=== PATIENT | male | born 1985 | race Caucasian/White ===

== ENCOUNTER 2023-12-08 17:40 | Emergency (ER) | payer SELFPAY ==
[2023-12-08 17:45] VITALS: BP 136/89; PULSE 83; TEMP 36.9; O2SAT 100; BMI 25.3
--- NOTE | 2023-12-08 17:56 | ECG_ITS ---
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
[2023-12-08 18:26] LABS: Basophils Percent Auto 0.6 % (0.2-2.0); Eosinophils Absolute Auto 0.4 10^3/uL (0.0-0.7); Eosinophils Percent Auto 5.2 % (0.9-7.0); Hematocrit 42.7 % (42.0-54.0); Hemoglobin 14.1 g/dL (14.0-18.0); Immature Granulocytes Abs Auto 0.02 10^3/uL (0.00-0.03); Immature Granulocytes Pct Auto 0.3 % (0.0-0.5); Lymphocytes Absolute Auto 2.2 10^3/uL (1.2-3.8); Mean Corpuscular Hemoglobin 34.1 pg (25.9-34.0); Mean Corpuscular Volume 103.1 fL (80.0-94.0); Mean Platelet Volume 9.6 fL (9.5-13.5); Monocytes Absolute Auto 0.6 10^3/uL (0.3-0.8); Monocytes Percent Auto 8.5 % (1.7-12.0); Neutrophils Absolute Auto 3.8 10^3/uL (1.4-6.5); Neutrophils Percent Auto 54.4 % (43.0-75.0); Platelet Count 206 10^3/uL (150-450); Red Blood Count 4.14 10^6/uL (4.70-6.10); Red Cell Distribution Width 11.8 % (11.0-15.0); White Blood Count 6.9 10^3/uL (4.0-11.0)
[2023-12-08 18:47] LABS: Amphetamine Screen Urine POSITIVE (NEGATIVE); Benzodiazepines Screen Urine NEGATIVE (NEGATIVE); Cannabinoid Screen Urine POSITIVE (NEGATIVE); Cocaine Screen Urine POSITIVE (NEGATIVE); Methadone Screen Urine NEGATIVE (NEGATIVE); Methamphetamines Screen Urine POSITIVE (NEGATIVE); Opiate Screen Urine NEGATIVE (NEGATIVE); Phencyclidine Screen Urine NEGATIVE (NEGATIVE); Tricyclic Antidepressant Urine NEGATIVE (NEGATIVE)
[2023-12-08 18:48] LABS: Barbiturates Screen Urine NEGATIVE (NEGATIVE); Buprenorphine Screen Urine NEGATIVE (NEGATIVE); Oxycodone Screen Urine NEGATIVE (NEGATIVE)
[2023-12-08 18:53] LABS: Alanine Aminotransferase 16 U/L (16-63); Albumin Globulin Ratio 1.2; Albumin Level 3.3 g/dL (3.4-5.0); Alkaline Phosphatase 96 U/L (46-116); Anion Gap 11.9; Aspartate Amino Transferase 10 U/L (15-37); Bilirubin Total 0.2 mg/dL (0.2-1.0); Calcium 8.4 mg/dL (8.5-10.1); Carbon Dioxide 27.9 mmol/L (21.0-32.0); Chloride 103 mmol/L (98-107); Estimated GFR (African America >60 (>=60); Estimated GFR (Non-African Ame >60 (>=60); Ethanol <3 mg/dL; Globulin 2.8 g/dL; Glucose 101 mg/dL (74-106); Potassium 3.8 mmol/L (3.5-5.1); Sodium 139 mmol/L (136-145); Total Protein 6.1 g/dL (6.4-8.2)
--- NOTE | 2023-12-08 19:39 | ED.PSYCH1 ---
HPI - Psych General Chief Complaint: Psychiatric Symptoms Stated Complaint: Suicide Time Seen by Provider: 12/08/23 17:47 Source: Reports patient and family (mother) Mode of arrival: walk-in Limitations: Reports no limitations History of Present Illness HPI Narrative: 38-year-old male presents to the emergency department with mother with complaint of racing thoughts, difficulty concentrating. Has had thoughts of harming himself. Patient states he recently stopped taking Vyvanse due to the cost so he has reverted to using some meth to calm his thoughts down. However, he has not used in a couple days and symptoms are worsening. Quality:?As above Severity:?Moderate Timing:?As above, constant, worsening Context: Normal setting and activity? Modifying factors:?As above Associated symptoms: As above If self harm: has plan Details of plan: states he would hit his head, but adds that he won't do it because it will hurt Related Data Allergies Allergy/AdvReac Type Severity Reaction Status Date / Time Penicillins Allergy Severe Unknown Verified 12/08/23 17:50 shellfish derived Allergy Severe Wheezing Verified 12/08/23 17:50 Review of Systems ROS Constitutional Denies: fever, chills, fatigue or change in sleep pattern Ears, nose, mouth, and throat Denies: nasal congestion Cardiovascular Denies: chest pain or shortness of breath with exertion Respiratory Denies: shortness of breath Gastrointestinal Denies: abdominal pain Musculoskeletal Denies: joint pain Psychiatric Reports: irritability and difficulty concentrating; Denies: anxiety, change in sleep pattern, hopelessness, paranoia, visual hallucinations, auditory hallucinations or homicidal ideation Endocrine Denies: fatigue Exam Constitutional Vital Signs, click to edit/add: Last Vital Signs Temp 98.4 F 12/08/23 17:45 Pulse 83 12/08/23 17:45 Resp 18 12/08/23 17:45 BP 136/89 12/08/23 17:45 Pulse Ox 100 12/08/23 17:45 O2 Del Method Room Air 12/08/23 17:45 Documenting provider has reviewed patient's vital signs: yes Common normals: no apparent distress, average body habitus, oriented x3, no limitations, alert and well nourished General appearance: cooperative, comfortable and well kempt Orientation/consciousness: Yes awake, Yes oriented to person, Yes oriented to place and Yes oriented to time HENMT Common normals: normocephalic and head/scalp atraumatic Head and scalp: normocephalic and atraumatic Eye Common normals: conjunctivae normal Conjunctiva: conjunctiva(e) normal Respiratory Common normals: normal respiratory effort and clear to auscultation bilaterally Effort & inspection: able to speak in complete sentences Auscultation: clear to auscultation bilaterally Cardio Common normals: regular rate, regular rhythm and no murmurs Rate: regular rate Rhythm: regular rhythm Neuro Common normals: oriented x3, no focal motor deficits and no sensory deficits noted Sensorium/orientation: awake, alert, oriented to person, oriented to place and oriented to time Gait (neuro): normal gait Psych Common normals: thought process normal, cooperative, affect normal, speech normal, activity/motor behavior normal, denies hallucinations, denies homicidal ideation and denies suicidal ideation Appearance: well kempt Attitude: engaged Activity/motor behavior: appropriate eye contact; no fidgeting, not hyperactive and not disorganized Speech: normal speech Mood and affect: anxious; not hostile affect Thought process: normal thought process Thought content: no suicidality Course Vital Signs Vital signs: Vital Signs Temperature 98.4 F 12/08/23 17:45 Pulse Rate 83 12/08/23 17:45 Respiratory Rate 18 12/08/23 17:45 Blood Pressure 136/89 12/08/23 17:45 Pulse Oximetry 100 12/08/23 17:45 Oxygen Delivery Method Room Air 12/08/23 17:45 Temperature 98.4 F 12/08/23 17:45 Pulse Rate 83 12/08/23 17:45 Respiratory Rate 18 12/08/23 17:45 Blood Pressure 136/89 12/08/23 17:45 Pulse Oximetry 100 12/08/23 17:45 Oxygen Delivery Method Room Air 12/08/23 17:45 MDM - Psych MDM Narrative Medical decision making narrative: This is a pleasant 38-year-old male who presented to the emergency department with mother due to concerns regarding his mental health. Patient states he has had difficulty concentrating, racing thoughts especially over the past couple days. Patient had been on Vyvanse, but due to cost, could not keep taking the prescription. Because of the thoughts started worsening, started using methamphetamine as this has helped in the past. However, he has not taken it in the past 3 days hence the worsening of his condition. He has had thoughts of harming himself, specifically, hitting his head into a wall, but admits he would not do this because he knows it will hurt. Denies any hallucinations, homicidal ideation, previous suicide attempts. On arrival, afebrile, vital signs are stable. On exam, nontoxic, well-appearing patient in no distress. He makes good eye contact. Heart regular rate and rhythm. Lung sounds clear and equal bilaterally. He is somewhat anxious, but cooperative no suicidal homicidal ideation. No evidence of delusional state or hallucinations present. EKG reveals no acute or concerning changes No serial no leukocytosis, anemia, electrolyte imbalance, renal impairment. Liver functions unremarkable. Alcohol not detected. Talk screen was positive for methamphetamines, cocaine, marijuana. Patient medically cleared He was evaluated by [facility]. After evaluation, they felt he could be discharged to home with safety plan and follow-up with crisis in the morning. Patient and mother were both agreeable with this. Favor anxiety, difficulty concentrating Suicidal ideation less likely as patient knows the ramifications, consequences, pain it could cause physically and does not feel he would do it No evidence of hallucinations, delusions Disposition ? The patient was discharged. Plan: Patient will be discharged to home. Condition at time of disposition: stable ? Advised to follow up with primary provider. Advised to return for any worsening and/or development of new, concerning signs or symptoms PLEASE NOTE: Portions of the medical record may have been produced using electronic aluminum pool installer and may contain errors with respect to translation of words which may not have been identified prior to finalization of the chart. Medical Records Attestation: I reviewed the patient's medical records. Lab Data Attestation: I reviewed the patient's lab results. Labs: Lab Results 12/08/23 12/08/23 Range/Units 18:10 18:25 WBC 6.9 (4.0-11.0) 10^3/uL RBC 4.14 L (4.70-6.10) 10^6/uL Hgb 14.1 (14.0-18.0) g/dL Hct 42.7 (42.0-54.0) % MCV 103.1 H (80.0-94.0) fL MCH 34.1 H (25.9-34.0) pg MCHC 33.0 (29.9-35.2) g/dL RDW 11.8 (11.0-15.0) % Plt Count 206 (150-450) 10^3/uL MPV 9.6 (9.5-13.5) fL Neut % (Auto) 54.4 (43.0-75.0) % Lymph % (Auto) 31.0 (20.5-60.0) % [place] % (Auto) 8.5 (1.7-12.0) % Eos % (Auto) 5.2 (0.9-7.0) % Baso % (Auto) 0.6 (0.2-2.0) % Neut # (Auto) 3.8 (1.4-6.5) 10^3/uL Lymph # (Auto) 2.2 (1.2-3.8) 10^3/uL [place] # (Auto) 0.6 (0.3-0.8) 10^3/uL Eos # (Auto) 0.4 (0.0-0.7) 10^3/uL Baso # (Auto) 0.0 (0.0-0.1) 10^3/uL Abs Immat Gran (auto) 0.02 (0.00-0.03) 10^3/uL Imm/Tot Granulo (auto) 0.3 (0.0-0.5) % Sodium 139 (136-145) mmol/L Potassium 3.8 (3.5-5.1) mmol/L Chloride 103 (98-107) mmol/L Carbon Dioxide 27.9 (21.0-32.0) mmol/L Anion Gap 11.9 BUN 11.0 (7.0-18.0) mg/dL Creatinine 0.92 (0.70-1.30) mg/dL Est GFR ( Amer) >60 (>=60) Est GFR (Non-Af Amer) >60 (>=60) BUN/Creatinine Ratio 12.0 Glucose 101 (74-106) mg/dL Calcium 8.4 L (8.5-10.1) mg/dL Total Bilirubin 0.2 (0.2-1.0) mg/dL AST 10 L (15-37) U/L ALT 16 (16-63) U/L Alkaline Phosphatase 96 (46-116) U/L Total Protein 6.1 L (6.4-8.2) g/dL Albumin 3.3 L (3.4-5.0) g/dL Globulin 2.8 g/dL Albumin/Globulin Ratio 1.2 Urine Opiates Screen Negative (NEGATIVE) Ur Buprenorphine Scrn Negative (NEGATIVE) Ur Oxycodone Screen Negative (NEGATIVE) Urine Methadone Screen Negative (NEGATIVE) Ur Barbiturates Screen Negative (NEGATIVE) U Tricyclic Antidepress Negative (NEGATIVE) Ur Phencyclidine Scrn Negative (NEGATIVE) Ur Amphetamines Screen Positive A (NEGATIVE) U Methamphetamines Scrn Positive A (NEGATIVE) U Benzodiazepines Scrn Negative (NEGATIVE) Urine Cocaine Screen Positive A (NEGATIVE) U Cannabinoids Screen Positive A (NEGATIVE) Ethanol Quant <3 mg/dL ECG Data Attestation: I personally reviewed and interpreted this ECG as follows: (Sinus rhythm at 84 bpm. Normal axis. No concerning ST changes. ME 132) ECG interpretation date: 12/08/23 ECG interpretation time: 17:51 Discharge Plan Discharge Stand Alone Forms: Portal Instructions Chief Complaint: Psychiatric Symptoms Clinical Impression: Acute anxiety, Difficulty concentrating Patient Disposition: Home, Self-Care Time of Disposition Decision: 20:57 Condition: Good Mode of Transportation: Private Vehicle Print Language: Upper Sorbian Instructions: Generalized Anxiety Disorder (ED) Additional Instructions: Follow up with crisis as instructed tomorrow Referrals: HOUSTON HARDIN [Primary Care Provider] - 1 week
[2023-12-08 21:04] VITALS: BP 128/91; PULSE 77; TEMP 36.6; O2SAT 98
== END 2023-12-08 21:09 | disposition home or self-care (01) ==
PROVIDERS: Physician Assistant; Emergency Provider Emergency Medicine; Family Provider Family Medicine; PCP Family Medicine
DX: F41.9 Anxiety disorder, unspecified (principal); R41.840 Attention and concentration deficit
CPT/HCPCS: 36415; 80053; 80307; 80320; 85025; 93005; 99284